=== PATIENT | female | born 1960 ===

== ENCOUNTER → 2018-05-11 | Outpatient (CLI) | payer BC ==
[~2018-05-11] MED LIST: FEM RING; LEVSOD50 PO; Prozac20 MG PO; RAMI5; Simvastatin20 MG PO; VENL75
== END | disposition home or self-care (01) ==
LOC: LAB SHORT 12:43 → LAB 12:43
PROVIDERS: Nurse Practitioner Women's Health
DX: Z12.72 Encounter for screening for malignant neoplasm of vagina (principal)
CPT/HCPCS: 87624; G0123

== ENCOUNTER → 2018-11-28 | Outpatient (CLI) | payer BC | LOC: LAB SHORT 10:02 → LAB EV 10:02 | DX: E03.9 Hypothyroidism, unspecified (principal) | CPT/HCPCS: 36415; 84443 ==

== ENCOUNTER 2019-05-30 14:13 | Emergency (ER) | payer BC ==
[~2019-05-30] VITALS: Ht 162.6 cm; Wt 99.8 kg
[2019-05-30] MEDS ORDERED: Ativan1 MG PO (15:44)
== END 2019-05-30 15:51 | disposition home or self-care (01) ==
LOC: ER 14:13
DX: F41.0 Panic disorder [episodic paroxysmal anxiety] (principal); Z88.5 Allergy status to narcotic agent; Z79.899 Other long term (current) drug therapy; F32.9 Major depressive disorder, single episode, unspecified
CPT/HCPCS: 99283

== ENCOUNTER → 2019-12-21 | Outpatient (CLI) | payer BC ==
[~2019-12-21] MED LIST changes: +Ativan1 MG PO
== END | disposition home or self-care (01) ==
LOC: PLD 15:53 → LAB SHORT 15:53
DX: L57.8 Other skin changes due to chronic exposure to nonionizing radiation (principal); B88.9 Infestation, unspecified
CPT/HCPCS: 88305

== ENCOUNTER 2022-04-18 06:10 | Day surgery (SDC) | payer OTHER ==
[~2022-04-18] VITALS: Ht 162.6 cm; Wt 144.5 kg
--- NOTE | 2022-04-18 07:28 | NUR ---
04/18/22 0728 Jono Cordon History, Chart, Medications and Allergies reviewed before start of procedure.MONITOR INTACT WITH CONTINUOUS PULSE OXIMETRY AND INTERMITTENT BP.3-LEAD EKG REVIEWED WITH PHYSICIAN PRIOR TO START OF PROCEDURE.O2 VIA POM INTACT THROUGHOUT SEDATION/PROCEDURE. See Anesthesia record.
--- NOTE | 2022-04-18 08:33 | NUR ---
Patient up to Ambulate independently. Gait steady. Discharge instructions reviewed with patient. Patient verbalizes understanding. Copy given to patient to take home. Patient States Post-Procedure ride home has been arranged. Discharge instructions reviewed with patient. Patient verbalizes understanding. Copy given to patient to take home. OUT VIA WC. TOOK PT HOME.
== END 2022-04-18 08:30 | disposition home or self-care (01) ==
LOC: ORSCMMR 06:10 → ORD 07:30 → ORSCMMR 08:30
PROVIDERS: Surgery
PROC: 0DBM8ZX Excision of Descending Colon, Via Natural or Artificial Opening Endoscopic, Diagnostic (ICD-10-PCS; principal; 2022-04-18 07:30)
DX: Z12.11 Encounter for screening for malignant neoplasm of colon (principal); Z86.010 Personal history of colon polyps; Z80.0 Family history of malignant neoplasm of digestive organs; D12.4 Benign neoplasm of descending colon; F41.8 Other specified anxiety disorders; F41.9 Anxiety disorder, unspecified; E03.9 Hypothyroidism, unspecified; G47.33 Obstructive sleep apnea (adult) (pediatric); E88.81 Metabolic syndrome and other insulin resistance; E66.01 Morbid (severe) obesity due to excess calories; Z68.43 Body mass index [BMI] 50.0-59.9, adult; Z79.84 Long term (current) use of oral hypoglycemic drugs; Z79.899 Other long term (current) drug therapy
CPT/HCPCS: 88305; J2704; J7120